=== PATIENT | female | born 1965 | race Caucasian/White ===

== ENCOUNTER 2016-07-22 14:28 | Emergency (ER) | payer OTHER ==
[~2016-07-22] VITALS: Ht 160 cm; Wt 79.8 kg
[~2016-07-22 14:28] MED LIST: ACCUPRIL10 MG PO; ADDERALL XR 2020 MG PO; AMBIEN10 MG PO; ASPIR 8181 MG PO; ASPIRIN81 M1 PO; ATORVASTATIN 80 MG T; BENADRYL25 MG PO; BUSPAR15 MG PO; BUSPIRONE HCL15 MG PO; Buspar PO; CLARITIN10 M3 PO; CO Q-10100 MG PO; DICYCLOMINE HCL10 MG PO; ENDOCET 5-3251 EACH PO; FISH OIL 1,2001 EAC4 PO; FLEXERIL10 MG PO; FLUTICASONE PRO16 GM NS; GEODON80 MG PO; Glucophage XR PO; KLONOPIN0.5 M1 PO; LEXAPRO10 MG PO; LIPITOR80 MG PO; LO-DOSE ASPIRIN81 M1 PO; LODINE300 MG PO; METFORMIN HCL750 MG PO; MOTRIN IB200 MG PO; MUCINEX D ER T1 EACH; NABUMETONE750 MG PO; NAPROXEN500 MG PO; NORCO 5/3251 TABLET PO; OMEPRAZOLE20 M2; PAXIL30 MG PO; PERCOCET 5/31 TABLET PO; PRAVACHOL40 MG PO; PREMARIN1.25 MG PO; PREVACID 24HR15 MG PO; PREVACID30 MG PO; PROTONIX40 MG PO; SKELAXIN800 MG PO; TRAZODONE HCL50 MG PO; TRICOR145 MG PO; TRILIPIX135 MG PO; WELLBUTRIN SR150 MG PO; ZIPRASIDONE PO; ZOLOFT100 MG PO; risperDAL PO
[2016-07-22] MEDS ORDERED: DAILY VITE1 EAC1 PO (15:02)
[2016-07-22 16:27] LABS: HEMATOCRIT 34.9 % (36.0-46.0); MCH 30.7 PG (29.0-34.0); MCHC 33.8 G/DL (30.0-36.0); MCV 90.9 FL (83-99); MEAN PLAT.VOLUME 8.5 uM^3 (9.5-12.4); PLATELET COUNT 374 K/uL (156-360); RBC DIS.WIDTH-CV 12.4 % (11.8-14.6); RBC DIS.WIDTH-SD 41.3 % (39-53); RED BLOOD COUNT 3.84 M/uL (3.80-5.20); WHITE BLOOD COUNT 10.6 K/uL (4.1-10.2)
[2016-07-22 16:47] LABS: CHLORIDE 101 mEq/L (99-109); POTASSIUM 4.1 mEq/L (3.7-5.4); SODIUM 139 mEq/L (136-147)
[2016-07-22 16:49] LABS: GLUCOSE 93 mg/dL (70-99)
[2016-07-22 16:50] LABS: ANION GAP 11 MEQ/L (2-14)
[2016-07-22 16:51] LABS: TOTAL BILIRUBIN 0.2 mg/dL (0.0-1.0)
[2016-07-22 16:52] LABS: ALKALINE PHOSPHATASE 59 IU/L (3-129)
[2016-07-22 16:53] LABS: GFR ESTIMATE (CALCULATED) > 59 mL/min/
[2016-07-22 16:54] LABS: UREA NITROGEN (BUN) 10 mg/dL (9-23)
[2016-07-22 16:56] LABS: LIPASE 30 U/L (1.0-51.0)
[2016-07-22 16:56] LABS: ADD MIUA? NO; BILIRUBIN NEGATIVE; BLOOD NEGATIVE; COLOR STRAW ((YELLOW)); GLUCOSE (STRIP) NEGATIVE; KETONES NEGATIVE; LEUKOCYTES NEGATIVE; NITRITE NEGATIVE; PROTEIN (STRIP) NEGATIVE; SPECIFIC GRAVITY 1.004 (1.000-1.030); UROBILINOGEN 0.2 MG/DL (0.2-1.0)
[2016-07-22] MEDS ORDERED: ZOFRAN ODT4 MG PO (17:26)
[2016-07-22] MEDS ORDERED: CITRATE OF MAG296 ML PO (17:26)
[2016-07-22] MEDS ORDERED: ADULT GLYCERIN1 EACH PR (17:27)
[2016-07-22 17:49] VITALS: BP 158/98
== END 2016-07-22 17:55 | disposition home or self-care (01) ==
LOC: EME 14:28
PROVIDERS: Nurse Practitioner Family
DX: K59.00 Constipation, unspecified (principal); D64.9 Anemia, unspecified; R14.0 Abdominal distension (gaseous); I10 Essential (primary) hypertension; E78.5 Hyperlipidemia, unspecified; E11.9 Type 2 diabetes mellitus without complications; Z88.2 Allergy status to sulfonamides; F17.200 Nicotine dependence, unspecified, uncomplicated
CPT/HCPCS: 74000; 80053; 81003; 83690; 85027; 99281; 99285

== ENCOUNTER → 2016-12-01 | Outpatient (CLI) | payer OTHER ==
[~2016-12-01] MED LIST changes: +ADULT GLYCERIN1 EACH PR; +CITRATE OF MAG296 ML PO; +DAILY VITE1 EAC1 PO; +ZOFRAN ODT4 MG PO
== END | disposition home or self-care (01) ==
LOC: CDC 10:47
DX: M70.62 Trochanteric bursitis, left hip (principal); M25.552 Pain in left hip
CPT/HCPCS: 93000

== ENCOUNTER 2017-05-18 10:50 | Emergency (ER) | payer OTHER ==
[~2017-05-18] VITALS: Ht 160 cm; Wt 56.0 kg
[2017-05-18 11:19] LABS: BASOPHIL (%) 0.7 % (0-1); BASOPHIL COUNT 0.1 K/uL (0-0.1); EOSINOPHIL (%) 0.3 % (0-5); HEMATOCRIT 38.8 % (36.0-46.0); HEMOGLOBIN 13.1 G/DL (11.9-15.5); IMMATURE GRANULOCYTE (%) 0.8 % (0.0-0.7); LYMPHOCYTE COUNT 2.7 K/uL (1.0-2.8); MCH 29.4 PG (29.0-34.0); MCHC 33.8 G/DL (30.0-36.0); MONOCYTE (%) 7.8 % (3-12); MONOCYTE COUNT 0.9 K/uL (0-0.8); NEUTROPHIL (%) 66.4 % (45-76); NEUTROPHIL COUNT 7.4 K/uL (1.8-6.4); PLATELET COUNT 453 K/uL (156-360); RBC DIS.WIDTH-SD 40.7 % (39-53); RED BLOOD COUNT 4.46 M/uL (3.80-5.20); WHITE BLOOD COUNT 11.1 K/uL (4.1-10.2)
[2017-05-18 11:30] LABS: CHLORIDE 99 mEq/L (99-109); POTASSIUM 3.9 mEq/L (3.7-5.4); SODIUM 137 mEq/L (136-147)
[2017-05-18 11:32] LABS: GLUCOSE 130 mg/dL (70-99)
[2017-05-18 11:36] LABS: CREATININE 0.7 mg/dL (0.6-1.3); GFR ESTIMATE (CALCULATED) > 59 mL/min/; UREA NITROGEN (BUN) 10 mg/dL (9-23)
[2017-05-18 12:54] LABS: APPEARANCE CLEAR ((CLEAR)); BILIRUBIN NEGATIVE; BLOOD NEGATIVE; COLOR YELLOW ((YELLOW)); GLUCOSE (STRIP) NEGATIVE; KETONES NEGATIVE; LEUKOCYTES NEGATIVE; NITRITE NEGATIVE; PROTEIN (STRIP) NEGATIVE; UCUL ADDED? NO; UROBILINOGEN 0.2 MG/DL (0.2-1.0)
[2017-05-18] MEDS ORDERED: AUGMENTIN875 MG PO (13:34)
[2017-05-18] MEDS ORDERED: ZOFRAN4 MG PO (14:11)
[2017-05-18 14:41] VITALS: BP 181/100
== END 2017-05-18 14:42 | disposition home or self-care (01) ==
LOC: EME 10:50
PROVIDERS: Emergency Medicine
DX: B34.9 Viral infection, unspecified (principal); J32.9 Chronic sinusitis, unspecified; E11.9 Type 2 diabetes mellitus without complications; E78.5 Hyperlipidemia, unspecified; F32.9 Major depressive disorder, single episode, unspecified; F41.9 Anxiety disorder, unspecified; F17.200 Nicotine dependence, unspecified, uncomplicated; Z87.442 Personal history of urinary calculi; Z79.82 Long term (current) use of aspirin; Z88.2 Allergy status to sulfonamides
CPT/HCPCS: 71046; 80048; 81003; 85025; 87502; 99281; 99285; J1885; J2405; J7030

== ENCOUNTER 2017-07-14 02:02 | Observation (INO) | payer OTHER ==
[~2017-07-14] VITALS: Ht 160 cm; Wt 85.2 kg
[~2017-07-14 02:02] MED LIST changes: +ADDERALL XR 2525 MG PO; +AUGMENTIN875 MG PO; +ZOFRAN4 MG PO
[2017-07-14 02:32] LABS: HEMATOCRIT 41.8 % (36.0-46.0); HEMOGLOBIN 14.5 G/DL (11.9-15.5); MCH 29.9 PG (29.0-34.0); MCHC 34.7 G/DL (30.0-36.0); MCV 86.2 FL (83-99); PLATELET COUNT 383 K/uL (156-360); RED BLOOD COUNT 4.85 M/uL (3.80-5.20); WHITE BLOOD COUNT 8.9 K/uL (4.1-10.2)
[2017-07-14 02:43] LABS: ALBUMIN 4.9 g/dL (3.2-4.8)
[2017-07-14 02:44] LABS: CHLORIDE 94 mEq/L (99-109); POTASSIUM 3.8 mEq/L (3.7-5.4); SODIUM 137 mEq/L (136-147)
[2017-07-14 02:46] LABS: GLUCOSE 143 mg/dL (70-99); TOTAL PROTEIN 8.2 g/dL (6.4-8.3)
[2017-07-14 02:48] LABS: TOTAL BILIRUBIN 0.4 mg/dL (0.0-1.0)
[2017-07-14 02:49] LABS: ALKALINE PHOSPHATASE 100 IU/L (3-129)
[2017-07-14 02:50] LABS: CREATININE 0.9 mg/dL (0.6-1.3); GFR ESTIMATE (CALCULATED) > 59 mL/min/
[2017-07-14 02:51] LABS: AST (GOT) 105 IU/L (2-34); UREA NITROGEN (BUN) 18 mg/dL (9-23)
[2017-07-14 02:53] LABS: ALT (GPT) 151 IU/L (3-49); LIPASE 29 U/L (1.0-51.0)
[2017-07-14 02:54] LABS: TROP-I INTERPRETATION NEGATIVE; TROPONIN-I < 0.01 ng/mL (0.0-0.30)
[2017-07-14 03:24] LABS: INTER. NORMALIZED RATIO 1.1
[2017-07-14 03:26] LABS: D-DIMER ELISA < 150.00 ng/mLDDU (<230)
[2017-07-14 03:27] LABS: PTT 31.6 SEC (25-37)
[2017-07-14] MEDS ORDERED: GLUCOPHAGE XR750 MG PO (04:31)
[2017-07-14] MEDS ORDERED: XANAX0.5 MG PO (04:32)
[2017-07-14 04:57] LABS: APPEARANCE CLEAR ((CLEAR)); BILIRUBIN NEGATIVE; BLOOD NEGATIVE; COLOR YELLOW ((YELLOW)); GLUCOSE (STRIP) NEGATIVE; KETONES NEGATIVE; LEUKOCYTES SMALL; NITRITE NEGATIVE; PROTEIN (STRIP) NEGATIVE; UROBILINOGEN 0.2 MG/DL (0.2-1.0)
[2017-07-14 05:10] LABS: BACTERIA NONE SEEN /HPF; EPITHELIAL CELLS RARE /HPF; MUCUS TRACE /LPF; RED BLOOD CELLS 0-5 /HPF (0-5); UCUL ADDED? YES
[2017-07-14 07:48] LABS: TROP-I INTERPRETATION NEGATIVE; TROPONIN-I 0.01 ng/mL (0.0-0.30)
[2017-07-14 07:54] LABS: ALBUMIN 4.3 G/DL (3.2-4.8); ALKALINE PHOSPHATASE 71 IU/L (3-129); ALT (GPT) 113 IU/L (3-49); AST (GOT) 82 IU/L (2-34); CHLORIDE 97 MEQ/L (99-109); CREATININE 0.6 MG/DL (0.6-1.3); GFR ESTIMATE (CALCULATED) > 59 mL/min/; GLUCOSE 103 mg/dL (70-99); HDL CHOLESTEROL 44 MG/DL (Desirable>=50); LDL CHOLESTEROL 26 mg/dL (Desirable<100); NON-HDL CHOLESTEROL 76 mg/dL (Desirable<160); POTASSIUM 3.9 MEQ/L (3.7-5.4); SODIUM 136 MEQ/L (136-147); TOTAL BILIRUBIN 0.3 MG/DL (0.0-1.0); TOTAL CHOLESTEROL 120 mg/dL (Desirable<200); TRIGLYCERIDES 250 MG/DL (Normal: <150); UREA NITROGEN (BUN) 14 mg/dL (9-23)
[2017-07-14] MEDS ORDERED: NAPROSYN500 MG PO (09:09)
[2017-07-14] MEDS ORDERED: LINZESS72 MCG PO (09:12)
[2017-07-14] MEDS ORDERED: IRON325 M1 PO (09:13)
[2017-07-14] MEDS ORDERED: VITAMIN D-32000 UNI2 PO (09:13)
[2017-07-14 10:26] LABS: HEMOGLOBIN A1c (GLYCOHEMOGLOB) 6.4 % (Below 5.7)
[2017-07-14 12:15] VITALS: BP 126/80
[2017-07-14 15:10] LABS: TROP-I INTERPRETATION NEGATIVE; TROPONIN-I < 0.01 ng/mL (0.0-0.30)
[2017-07-14 15:12] VITALS: BP 114/75
[2017-07-14 19:29] VITALS: BP 98/58
[2017-07-14 23:47] VITALS: BP 91/60
[2017-07-15 00:21] LABS: BENZODIAZEPINES, URINE SCREEN POSITIVE (200 ng/mL)
[2017-07-15 03:58] VITALS: BP 97/56
[2017-07-15 06:04] LABS: BASOPHIL (%) 1.1 % (0-1); BASOPHIL COUNT 0.1 K/uL (0-0.1); EOSINOPHIL (%) 0 % (0-5); HEMATOCRIT 39.3 % (36.0-46.0); HEMOGLOBIN 13.1 G/DL (11.9-15.5); IMMATURE GRANULOCYTE (%) 0.1 % (0.0-0.7); LYMPHOCYTE (%) 37.8 % (15-42); LYMPHOCYTE COUNT 2.8 K/uL (1.0-2.8); MCH 29.6 PG (29.0-34.0); MCHC 33.3 G/DL (30.0-36.0); MCV 88.7 FL (83-99); MONOCYTE (%) 11.2 % (3-12); MONOCYTE COUNT 0.8 K/uL (0-0.8); NEUTROPHIL (%) 49.8 % (45-76); NEUTROPHIL COUNT 3.8 K/uL (1.8-6.4); PLATELET COUNT 331 K/uL (156-360); RBC DIS.WIDTH-CV 12.5 % (11.8-14.6); RBC DIS.WIDTH-SD 40.9 % (39-53); RED BLOOD COUNT 4.43 M/uL (3.80-5.20); WHITE BLOOD COUNT 7.5 K/uL (4.1-10.2)
[2017-07-15 06:30] LABS: ALBUMIN 4.3 G/DL (3.2-4.8); ALKALINE PHOSPHATASE 75 IU/L (3-129); ALT (GPT) 106 IU/L (3-49); AST (GOT) 82 IU/L (2-34); CHLORIDE 98 MEQ/L (99-109); CREATINE KINASE 61 IU/L (1-294); SODIUM 136 MEQ/L (136-147); TOTAL PROTEIN 6.5 G/DL (6.4-8.3)
[2017-07-15 06:31] LABS: CREATININE 1.6 MG/DL (0.6-1.3); GFR ESTIMATE (CALCULATED) 36 mL/min/; GLUCOSE 162 mg/dL (70-99); POTASSIUM 4.7 MEQ/L (3.7-5.4); TOTAL BILIRUBIN 0.2 MG/DL (0.0-1.0); UREA NITROGEN (BUN) 24 mg/dL (9-23)
[2017-07-15 07:40] VITALS: BP 127/73
[2017-07-15 11:51] VITALS: BP 130/66
[2017-07-15 14:40] VITALS: BP 104/61
[2017-07-15 20:15] VITALS: BP 118/63
[2017-07-15 23:36] VITALS: BP 131/85
[2017-07-16 05:33] LABS: BASOPHIL (%) 0.9 % (0-1); BASOPHIL COUNT 0.1 K/uL (0-0.1); EOSINOPHIL (%) 0.2 % (0-5); HEMATOCRIT 37.8 % (36.0-46.0); HEMOGLOBIN 12.4 G/DL (11.9-15.5); IMMATURE GRANULOCYTE (%) 0.5 % (0.0-0.7); LYMPHOCYTE (%) 24.8 % (15-42); LYMPHOCYTE COUNT 1.4 K/uL (1.0-2.8); MCH 29.1 PG (29.0-34.0); MCHC 32.8 G/DL (30.0-36.0); MCV 88.7 FL (83-99); MONOCYTE (%) 9.6 % (3-12); MONOCYTE COUNT 0.6 K/uL (0-0.8); NEUTROPHIL COUNT 3.7 K/uL (1.8-6.4); PLATELET COUNT 281 K/uL (156-360); RBC DIS.WIDTH-CV 12.2 % (11.8-14.6); RBC DIS.WIDTH-SD 39.6 % (39-53); RED BLOOD COUNT 4.26 M/uL (3.80-5.20); WHITE BLOOD COUNT 5.8 K/uL (4.1-10.2)
[2017-07-16 06:01] LABS: GLUCOSE 123 mg/dL (70-99); POTASSIUM 4.5 MEQ/L (3.7-5.4); UREA NITROGEN (BUN) 12 mg/dL (9-23)
[2017-07-16 06:02] LABS: CHLORIDE 109 MEQ/L (99-109); CREATININE 0.6 MG/DL (0.6-1.3); GFR ESTIMATE (CALCULATED) > 59 mL/min/; SODIUM 144 MEQ/L (136-147)
[2017-07-16 08:26] VITALS: BP 144/76
[2017-07-16 12:06] VITALS: BP 110/63
[2017-07-16] MEDS ORDERED: ATORVASTATIN CA80 MG PO (12:13)
[2017-07-16] MEDS ORDERED: PANTOPRAZOLE SO40 MG PO (12:14)
[2017-07-16] MEDS ORDERED: NORVASC2.5 MG PO (12:27)
== END 2017-07-16 14:00 | disposition home or self-care (01) ==
LOC: EME 02:02 → EDOF 03:57 → ENRESERV 03:59 → 5WEST 11:55
PROVIDERS: Emergency Medicine; Hospitalist; Internal Medicine; Physician Assistant Medical
DX: R07.89 Other chest pain (principal); N17.9 Acute kidney failure, unspecified; I16.0 Hypertensive urgency; I10 Essential (primary) hypertension; R74.0 Nonspecific elevation of levels of transaminase and lactic acid dehydrogenase [LDH]; R09.02 Hypoxemia; F41.8 Other specified anxiety disorders; K21.9 Gastro-esophageal reflux disease without esophagitis; E11.9 Type 2 diabetes mellitus without complications; Z79.84 Long term (current) use of oral hypoglycemic drugs; Z87.891 Personal history of nicotine dependence; R00.0 Tachycardia, unspecified; N39.0 Urinary tract infection, site not specified; E78.5 Hyperlipidemia, unspecified; Z79.82 Long term (current) use of aspirin; Z87.442 Personal history of urinary calculi; Z90.710 Acquired absence of both cervix and uterus; Z90.79 Acquired absence of other genital organ(s); Z90.721 Acquired absence of ovaries, unilateral; Z82.49 Family history of ischemic heart disease and other diseases of the circulatory system; Z88.2 Allergy status to sulfonamides; Z88.5 Allergy status to narcotic agent
CPT/HCPCS: 71046; 76705; 80048; 80053; 80061; 80306 90; 81003; 82550; 82948; 83036; 83690; 84443; 84484; 85025; 85027; 85379; 85610; 85730; 87086; 93005; 94640; 99281; 99285; C9113; G0378; J1650; J1815; J2405; J7030

== ENCOUNTER 2017-09-07 23:14 | Observation (INO) | payer OTHER ==
[~2017-09-07] VITALS: Ht 160 cm; Wt 84.3 kg
[~2017-09-07 23:14] MED LIST changes: +ATORVASTATIN CA80 MG PO; +GLUCOPHAGE XR750 MG PO; +IRON325 M1 PO; +LINZESS72 MCG PO; +NAPROSYN500 MG PO; +NORVASC2.5 MG PO; +PANTOPRAZOLE SO40 MG PO; +VITAMIN D-32000 UNI2 PO; +XANAX0.5 MG PO
[2017-09-07 23:40] LABS: HEMATOCRIT 41.4 % (36.0-46.0); HEMOGLOBIN 14.1 G/DL (11.9-15.5); MCH 29.4 PG (29.0-34.0); MCHC 34.1 G/DL (30.0-36.0); MCV 86.4 FL (83-99); PLATELET COUNT 406 K/uL (156-360); RBC DIS.WIDTH-CV 12.6 % (11.8-14.6); RBC DIS.WIDTH-SD 39.9 % (39-53); RED BLOOD COUNT 4.79 M/uL (3.80-5.20); WHITE BLOOD COUNT 10.5 K/uL (4.1-10.2)
[2017-09-07 23:55] LABS: CHLORIDE 99 mEq/L (99-109); POTASSIUM 3.6 mEq/L (3.7-5.4); SODIUM 140 mEq/L (136-147)
[2017-09-07 23:57] LABS: GLUCOSE 143 mg/dL (70-99)
[2017-09-08] LABS: CREATININE 0.8 mg/dL (0.6-1.3); GFR ESTIMATE (CALCULATED) > 59 mL/min/
[2017-09-08 00:01] LABS: TROP-I INTERPRETATION NEGATIVE; TROPONIN-I < 0.01 ng/mL (0.0-0.30); UREA NITROGEN (BUN) 14 mg/dL (9-23)
[2017-09-08 02:56] LABS: D-DIMER ELISA < 150.00 ng/mLDDU (<230)
[2017-09-08 06:17] LABS: TROP-I INTERPRETATION NEGATIVE; TROPONIN-I < 0.01 ng/mL (0.0-0.30)
[2017-09-08 07:47] VITALS: BP 136/72
[2017-09-08 11:41] VITALS: BP 114/62
[2017-09-08 13:05] LABS: TROP-I INTERPRETATION NEGATIVE; TROPONIN-I < 0.01 ng/mL (0.0-0.30)
[2017-09-08] MEDS ORDERED: METOPROLOL SUCC25 MG PO (13:59)
== END 2017-09-08 14:14 | disposition home or self-care (01) ==
LOC: EME 23:14 → EDOF 09-08 04:01 → ENRESERV 09-08 04:12 → 4SOUTH 09-08 07:36
PROVIDERS: Hospitalist
DX: R07.9 Chest pain, unspecified (principal); R94.31 Abnormal electrocardiogram [ECG] [EKG]; E11.9 Type 2 diabetes mellitus without complications; I10 Essential (primary) hypertension; E78.5 Hyperlipidemia, unspecified; K21.9 Gastro-esophageal reflux disease without esophagitis; F32.9 Major depressive disorder, single episode, unspecified; K52.9 Noninfective gastroenteritis and colitis, unspecified; F41.9 Anxiety disorder, unspecified; R42 Dizziness and giddiness; F17.200 Nicotine dependence, unspecified, uncomplicated; Z82.49 Family history of ischemic heart disease and other diseases of the circulatory system; J30.9 Allergic rhinitis, unspecified; Z88.5 Allergy status to narcotic agent; Z88.2 Allergy status to sulfonamides
CPT/HCPCS: 71046; 80048; 82948; 84484; 85027; 85379; 93005; 99281; 99285; G0378; J1650